=== PATIENT | male | born 1945 | race African-American/Black ===

== ENCOUNTER 2018-04-08 10:01 | Emergency (ER) | payer MEDICARE ==
[~2018-04-08] VITALS: Ht 185.4 cm; Wt 77.0 kg
[~2018-04-08 10:01] MED LIST: AMLO10TA80 MT; ATEN50TA MT; BENA1TAB19 MT; SIMV20TA6 MT
[2018-04-08] MEDS ORDERED: KETOROLAC 30MG/ML VIAL IV STA (11:08)
[2018-04-08] MEDS ORDERED: ASPIRIN 81MG TABLET PO ONE (11:15)
[2018-04-08 11:39] LABS: HEMATOCRIT. 38.6 % (42.0-52.0); MEAN CORPUSCULAR HEMOGLOBIN 28.5 pg (28.0-32.0); MEAN CORPUSCULAR VOLUME 84.6 fL (80.0-94.0); MEAN PLATELET VOLUME 7.9 fl (7.4-10.4); PLATELET 407 x1000/uL (130-400); RED BLOOD CELL COUNT 4.56 mill/uL (4.7-6.1); RED CELL DISTRIBUTION WIDTH 17.3 % (11.6-14.6)
[2018-04-08 11:48] LABS: CHLORIDE 104 mEq/L (98-107)
[2018-04-08 12:22] LABS: PLATELET ESTIMATE SLIGHTLY INCREASED
[2018-04-08 13:50] VITALS: BP 132/59
== END 2018-04-08 14:28 | disposition home or self-care (01) ==
LOC: ER 10:01 → CANBEDREQ 13:48 → ER 14:28
DX: R07.9 Chest pain, unspecified (principal); M17.12 Unilateral primary osteoarthritis, left knee; E78.00 Pure hypercholesterolemia, unspecified; I10 Essential (primary) hypertension; F17.200 Nicotine dependence, unspecified, uncomplicated; Z79.82 Long term (current) use of aspirin
CPT/HCPCS: 36415; 71045; 73560; 80053; 83880; 84484; 85025; 93005; 96374; 99285; J1885

== ENCOUNTER 2018-06-23 01:21 | Inpatient (IN) | payer MEDICARE ==
[~2018-06-23] VITALS: Ht 185.4 cm; Wt 71.9 kg
[2018-06-23 02:50] LABS: EOSINOPHILS % 1.3 % (0.0-5.0); HEMATOCRIT. 39.4 % (42.0-52.0); HEMOGLOBIN. 12.9 g/dL (14.0-18.0); LYMPHOCYTES % 7.1 % (20.0-50.0); MEAN CORPUSCULAR HEMOGLOBIN 27.8 pg (28.0-32.0); MEAN CORPUSCULAR VOLUME 84.8 fL (80.0-94.0); MEAN PLATELET VOLUME 8.2 fl (7.4-10.4); MONOCYTES % 7.4 % (2.0-8.0); NEUTROPHILS % 83.2 % (40.0-76.0); PLATELET 330 x1000/uL (130-400); RED BLOOD CELL COUNT 4.65 mill/uL (4.7-6.1); RED CELL DISTRIBUTION WIDTH 17.4 % (11.6-14.6)
[2018-06-23 02:54] LABS: CHLORIDE 105 mEq/L (98-107)
[2018-06-23 08:28] VITALS: BP 143/65
[2018-06-23 08:30] VITALS: BP 143/65
[2018-06-23] MEDS ORDERED: HYDROCODONE/ACETAMINOPHEN 5/325MG TABLET PO PRN (08:30)
[2018-06-23] MEDS ORDERED: DOCUSATE SODIUM 100MG CAPSULE PO PRN (08:30)
[2018-06-23] MEDS ORDERED: ACETAMINOPHEN 325MG TABLET PO PRN (08:30)
[2018-06-23] MEDS ORDERED: ACETAMINOPHEN 650MG SUPP PR PRN (08:30)
[2018-06-23] MEDS ORDERED: CLONIDINE 0.1MG TABLET PO PRN (08:30)
[2018-06-23] MEDS ORDERED: MAGNESIUM/ALUMINUM HYDROXIDE/SIMETHICONE 30ML UDC PO PRN (08:30)
[2018-06-23] MEDS ORDERED: GUAIFENESIN 200MG/10ML SUGAR FREE UDC PO PRN (08:30)
[2018-06-23] MEDS ORDERED: ACETAMINOPHEN 650MG/20.3ML UDC GT PRN (08:30)
[2018-06-23] MEDS ORDERED: ONDANSETRON HCL 4MG/2ML INJ IV PRN (08:30)
[2018-06-23] MEDS ORDERED: IPRATROPIUM/ALBUTEROL 0.5-3(2.5)MG/3ML NEB INH PRN (08:30)
[2018-06-23] MEDS ORDERED: DIPHENHYDRAMINE 50MG/ML VIAL IV PRN (08:30)
[2018-06-23] MEDS ORDERED: NA PHOS,M-B/NA PHOS,DI-BA ENEMA 118ML PR PRN (08:30)
[2018-06-23] MEDS ORDERED: FUROSEMIDE 40MG/4ML VIAL IV SCH (09:00)
[2018-06-23] MEDS ORDERED: ASPI-1158 PO (09:54)
[2018-06-23] MEDS: ASPIRIN 81MG TABLET PO SCH (11:30)
[2018-06-23] MEDS: AMLODIPINE 5MG TABLET PO SCH ×2 (11:30→20:39)
[2018-06-23] MEDS: ENOXAPARIN 40MG/0.4ML SYR SUBCUT SCH (11:31)
[2018-06-23] MEDS: SODIUM CHLORIDE 0.9% 1,000 ML IV SCH (11:31)
[2018-06-23 12:00] VITALS: BP 147/73
[2018-06-23] MEDS: SODIUM CHLORIDE 0.9% INJ 3ML FLUSH IVF SCH ×2 (13:11→21:42)
[2018-06-23 13:36] LABS: CLARITY URINE CLEAR (CLEAR); COLOR URINE YELLOW (YELLOW); KETONES URINE TRACE (NEGATIVE); LEUKOCYTE ESTERASE URINE NEGATIVE (NEGATIVE); NITRITE URINE NEGATIVE (NEGATIVE); OCCULT BLOOD URINE TRACE (NEGATIVE); PH URINE 5.5 (4.5-8.0); PROTEIN URINE 2+ (NEGATIVE); SPECIFIC GRAVITY URINE 1.022 (1.005-1.030)
[2018-06-23 16:00] VITALS: BP 146/77
[2018-06-23 18:08] LABS: INR 1.2; PROTHROMBIN TIME 11.7 sec (9.1-11.1)
[2018-06-23 18:23] LABS: CREATINE KINASE 112 IU/L (39-308)
[2018-06-23 18:24] LABS: CREATINE KINASE MB FRACTION < 1.0 ng/mL (0.5-3.6)
[2018-06-23 20:00] VITALS: BP 127/63
[2018-06-24] VITALS: BP 125/60
[2018-06-24 02:16] LABS: CREATINE KINASE 90 IU/L (39-308)
[2018-06-24 02:17] LABS: CREATINE KINASE MB FRACTION < 1.0 ng/mL (0.5-3.6)
[2018-06-24 04:00] VITALS: BP 109/63
[2018-06-24] MEDS: SODIUM CHLORIDE 0.9% 1,000 ML IV SCH (05:04)
[2018-06-24 06:40] LABS: EOSINOPHILS % 0.9 % (0.0-5.0); HEMATOCRIT. 37.5 % (42.0-52.0); HEMOGLOBIN. 12.5 g/dL (14.0-18.0); LYMPHOCYTES % 9.7 % (20.0-50.0); MEAN CORPUSCULAR HEMOGLOBIN 28.1 pg (28.0-32.0); MEAN CORPUSCULAR VOLUME 84.5 fL (80.0-94.0); MEAN PLATELET VOLUME 8.8 fl (7.4-10.4); MONOCYTES % 8.9 % (2.0-8.0); NEUTROPHILS % 79.5 % (40.0-76.0); PLATELET 328 x1000/uL (130-400); RED BLOOD CELL COUNT 4.44 mill/uL (4.7-6.1)
[2018-06-24 07:14] LABS: CHLORIDE 107 mEq/L (98-107)
[2018-06-24 07:48] LABS: PHOSPHORUS 3.6 mg/dL (2.5-4.9)
[2018-06-24 07:49] LABS: LDL CHOLESTEROL 93 mg/dL (5-100)
[2018-06-24 08:00] VITALS: BP 154/70
[2018-06-24 09:05] LABS: HDL CHOLESTEROL 47 mg/dL (40-59)
[2018-06-24] MEDS: AMLODIPINE 5MG TABLET PO SCH ×2 (09:18→20:49)
[2018-06-24] MEDS: ASPIRIN 81MG TABLET PO SCH (09:18)
[2018-06-24] MEDS: ENOXAPARIN 40MG/0.4ML SYR SUBCUT SCH (09:19)
[2018-06-24 12:00] VITALS: BP 163/78
[2018-06-24] MEDS: SODIUM CHLORIDE 0.9% INJ 3ML FLUSH IVF SCH ×2 (13:57→20:49)
[2018-06-24] MEDS: METHYLPREDNISOLONE SOD SUCC 40 MG/ML VIAL IV SCH (15:52)
[2018-06-24] MEDS: LOSARTAN POTASSIUM 50 MG TABLET PO SCH (15:52)
[2018-06-24 16:00] VITALS: BP 136/65
[2018-06-24 18:34] LABS: CLARITY URINE CLEAR (CLEAR); COLOR URINE DARK YELLOW (YELLOW); KETONES URINE TRACE (NEGATIVE); LEUKOCYTE ESTERASE URINE NEGATIVE (NEGATIVE); NITRITE URINE NEGATIVE (NEGATIVE); OCCULT BLOOD URINE NEGATIVE (NEGATIVE); PH URINE 5.5 (4.5-8.0); PROTEIN URINE 2+ (NEGATIVE); SPECIFIC GRAVITY URINE 1.023 (1.005-1.030)
[2018-06-24 20:00] VITALS: BP 122/57
[2018-06-24] MEDS: ALBUTEROL (0.083%) 2.5MG/3ML NEB HHN SCH (20:35)
[2018-06-25] VITALS: BP 125/78
[2018-06-25] MEDS: ALBUTEROL (0.083%) 2.5MG/3ML NEB HHN SCH ×2 (02:17→07:45)
[2018-06-25 04:00] VITALS: BP 127/52
[2018-06-25] MEDS: SODIUM CHLORIDE 0.9% INJ 3ML FLUSH IVF SCH (05:34)
[2018-06-25 07:23] LABS: HEMATOCRIT. 38.9 % (42.0-52.0); HEMOGLOBIN. 13.1 g/dL (14.0-18.0); MEAN CORPUSCULAR HEMOGLOBIN 28.5 pg (28.0-32.0); MEAN CORPUSCULAR VOLUME 84.4 fL (80.0-94.0); MEAN PLATELET VOLUME 8.9 fl (7.4-10.4); PLATELET 355 x1000/uL (130-400); RED BLOOD CELL COUNT 4.61 mill/uL (4.7-6.1); RED CELL DISTRIBUTION WIDTH 16.9 % (11.6-14.6)
[2018-06-25 07:28] LABS: CHLORIDE 106 mEq/L (98-107)
[2018-06-25 07:37] LABS: PHOSPHORUS 4.6 mg/dL (2.5-4.9)
[2018-06-25 08:00] VITALS: BP 149/68
[2018-06-25] MEDS: METHYLPREDNISOLONE SOD SUCC 40 MG/ML VIAL IV SCH (09:00)
[2018-06-25] MEDS: ENOXAPARIN 40MG/0.4ML SYR SUBCUT SCH (09:13)
[2018-06-25] MEDS: AMLODIPINE 5MG TABLET PO SCH (09:13)
[2018-06-25] MEDS: ASPIRIN 81MG TABLET PO SCH (09:13)
[2018-06-25] MEDS: LOSARTAN POTASSIUM 50 MG TABLET PO SCH (09:13)
[2018-06-25] MEDS ORDERED: AMLO5TAB88 PO (10:25)
[2018-06-25] MEDS ORDERED: LOSA50TA3 PO (10:25)
[2018-06-25 10:33] VITALS: BP 149/68
[2018-06-25 20:32] LABS: PLATELET ESTIMATE NORMAL
== END 2018-06-25 11:20 | disposition home or self-care (01) | DRG 682 ==
LOC: ER 01:21 → 5WST 05:17 → EDBEDREQTM 05:19 → EDBEDREQ 05:19 → ENRESERV 06:46
PROVIDERS: ADMIT Family Medicine; ATTEND Family Medicine
DX: N17.0 Acute kidney failure with tubular necrosis (principal); I50.23 Acute on chronic systolic (congestive) heart failure; E44.0 Moderate protein-calorie malnutrition; J98.11 Atelectasis; I11.0 Hypertensive heart disease with heart failure; E78.00 Pure hypercholesterolemia, unspecified; E78.5 Hyperlipidemia, unspecified; F17.200 Nicotine dependence, unspecified, uncomplicated; I73.9 Peripheral vascular disease, unspecified; J44.9 Chronic obstructive pulmonary disease, unspecified; M17.12 Unilateral primary osteoarthritis, left knee; Z82.49 Family history of ischemic heart disease and other diseases of the circulatory system; Z87.01 Personal history of pneumonia (recurrent); Z88.0 Allergy status to penicillin; Z98.41 Cataract extraction status, right eye; Z83.3 Family history of diabetes mellitus; Z88.9 Allergy status to unspecified drugs, medicaments and biological substances; R80.9 Proteinuria, unspecified; Z68.20 Body mass index [BMI] 20.0-20.9, adult
CPT/HCPCS: 36415; 71045; 76770; 80048; 80061; 82550; 82553; 82570; 83735; 83880; 84100; 84156; 84484; 93005; 93306; 94640; 96361; 96374; 99285; J1650; J2405; J2920; J7030; J7611

== ENCOUNTER 2018-12-15 22:10 | Inpatient (IN) | payer MEDICARE, OTHER ==
[~2018-12-15] VITALS: Ht 182.9 cm; Wt 196.9 kg
[~2018-12-15 22:10] MED LIST changes: -AMLO10TA80 MT; +AMLO5TAB88 PO; +ASPI-1158 PO; -ATEN50TA MT; -BENA1TAB19 MT; +LOSA50TA3 PO
[2018-12-15 23:47] LABS: EOSINOPHILS % 2.6 % (0.0-5.0); HEMATOCRIT. 37.2 % (42.0-52.0); HEMOGLOBIN. 12.2 g/dL (14.0-18.0); MEAN CORPUSCULAR HEMOGLOBIN 27.5 pg (28.0-32.0); MEAN PLATELET VOLUME 8.2 fl (7.4-10.4); MONOCYTES % 4.7 % (2.0-8.0); NEUTROPHILS % 67.7 % (40.0-76.0); PLATELET 331 x1000/uL (130-400); RED BLOOD CELL COUNT 4.43 mill/uL (4.7-6.1); RED CELL DISTRIBUTION WIDTH 20.7 % (11.6-14.6)
[2018-12-15 23:52] LABS: CHLORIDE 113 mEq/L (98-107)
[2018-12-16] MEDS ORDERED: FUROSEMIDE 40MG/4ML VIAL IVP SCH (01:32)
[2018-12-16 04:00] VITALS: BP 127/85
[2018-12-16 06:02] VITALS: BP 127/85
[2018-12-16] MEDS ORDERED: CETI-101 PO (06:11)
[2018-12-16] MEDS ORDERED: ALBU18HF2 IH (06:11)
[2018-12-16] MEDS ORDERED: SACU1TAB7 PO (06:11)
[2018-12-16 08:00] VITALS: BP 122/84
[2018-12-16] MEDS: FUROSEMIDE 40MG/4ML VIAL IVP SCH ×2 (08:47→17:50)
[2018-12-16] MEDS: CETIRIZINE 10MG TABLET PO SCH (08:47)
[2018-12-16] MEDS: ASPIRIN 81MG TABLET PO SCH (08:48)
[2018-12-16] MEDS: AMLODIPINE 5MG TABLET PO SCH ×2 (08:48→21:00)
[2018-12-16] MEDS: ENTRESTO 49/51MG PO SCH ×2 (09:18→17:49)
[2018-12-16] MEDS ORDERED: PNEUMOCOCCAL 23-VAL P-SAC VAC 0.5 ML IM ONE (10:00)
[2018-12-16 10:20] LABS: BASOPHILS % 1.8 % (0.0-2.0); EOSINOPHILS % 2.7 % (0.0-5.0); HEMATOCRIT. 37.4 % (42.0-52.0); HEMOGLOBIN. 12.1 g/dL (14.0-18.0); LYMPHOCYTES % 18.1 % (20.0-50.0); MEAN CORPUSCULAR HEMOGLOBIN 27.2 pg (28.0-32.0); MEAN PLATELET VOLUME 8.2 fl (7.4-10.4); MONOCYTES % 3.4 % (2.0-8.0); PLATELET 326 x1000/uL (130-400); RED BLOOD CELL COUNT 4.46 mill/uL (4.7-6.1); RED CELL DISTRIBUTION WIDTH 21.2 % (11.6-14.6)
[2018-12-16 10:27] LABS: CHLORIDE 110 mEq/L (98-107)
[2018-12-16 12:00] VITALS: BP 109/67
[2018-12-16 12:26] LABS: T4 FREE 1.19 ng/dL (0.76-1.46)
[2018-12-16 16:00] VITALS: BP 110/71
[2018-12-16 16:31] LABS: CREATINE KINASE MB FRACTION 2.6 ng/mL (0.5-3.6)
[2018-12-16 20:00] VITALS: BP 103/65
[2018-12-16 23:32] LABS: CREATINE KINASE MB FRACTION 2.2 ng/mL (0.5-3.6)
[2018-12-17] VITALS: BP 111/65
[2018-12-17 04:00] VITALS: BP 122/78
[2018-12-17] MEDS: FUROSEMIDE 40MG/4ML VIAL IVP SCH (06:23)
[2018-12-17 08:00] VITALS: BP 138/78
[2018-12-17 08:26] LABS: CREATINE KINASE 142 IU/L (39-308)
[2018-12-17 08:29] LABS: CREATINE KINASE MB FRACTION 1.9 ng/mL (0.5-3.6)
[2018-12-17] MEDS: CETIRIZINE 10MG TABLET PO SCH (08:46)
[2018-12-17] MEDS: ASPIRIN 81MG TABLET PO SCH (08:46)
[2018-12-17] MEDS: AMLODIPINE 5MG TABLET PO SCH (08:46)
[2018-12-17] MEDS: ENTRESTO 49/51MG PO SCH (08:47)
[2018-12-17 10:49] VITALS: BP 138/79
== END 2018-12-17 11:30 | disposition home or self-care (01) | DRG 291 ==
LOC: ER 22:10 → 5WST 12-16 01:36 → EDBEDREQTM 12-16 01:38 → EDBEDREQ 12-16 01:38 → EDBEDREQDT 12-16 01:38 → ENRESERV 12-16 03:44
PROVIDERS: ADMIT Family Medicine; ATTEND Family Medicine
DX: I11.0 Hypertensive heart disease with heart failure (principal); E43 Unspecified severe protein-calorie malnutrition; Z68.43 Body mass index [BMI] 50.0-59.9, adult; E78.00 Pure hypercholesterolemia, unspecified; F17.200 Nicotine dependence, unspecified, uncomplicated; E78.5 Hyperlipidemia, unspecified; I50.9 Heart failure, unspecified; Z88.8 Allergy status to other drugs, medicaments and biological substances
CPT/HCPCS: 36415; 71045; 80061; 82550; 82553; 83036; 83735; 83880; 84439; 84443; 84484; 85379; 90732; 93005; 93306; 96374; 99285; J1940